=== PATIENT | male | born 1970 ===

== ENCOUNTER 2016-11-05 00:57 | Emergency (ER) ==
[~2016-11-05] VITALS: Ht 172.7 cm; Wt 88.5 kg
--- NOTE | ~2016-11-05 | EKG ---
PATIENT: HUI CHARLES UNIT #: [id number] Ventricular Rate: 68 BPM Atrial Rate: 68 BPM P-R Interval: 144 ms QRS Duration: 88 ms Q-T Interval: 404 ms QTC Calculation(Bezet): 429 ms P Vilas: 58 degrees Calculated R Vilas: 77 degrees Calculated T Vilas: 68 degrees Diagnosis Line: Normal sinus rhythm Diagnosis Line: Normal ECG Diagnosis Line: No previous ECGs available Diagnosis Line: Confirmed by LEONCIO WALLIS MD ([id number]) on Diagnosis Line: 11/06/2016 5:01:51 PM INTERPRETING MD: KADI FARNSWORTH
== END 2016-11-05 01:30 | disposition left against medical advice (07) ==
LOC: CED 00:57
DX: Z53.21 Procedure and treatment not carried out due to patient leaving prior to being seen by health care provider (principal)
CPT/HCPCS: 93005